=== PATIENT | female | born 1975 | race African-American/Black ===

== ENCOUNTER 2018-12-15 17:19 | Observation (INO) ==
[2018-12-15] MEDS ORDERED: MORPHINE 4 MG/1 ML VIAL IV STA (19:49)
[2018-12-15] MEDS ORDERED: ONDANSETRON 4 MG/2 ML VIAL IV STA (19:49)
[2018-12-15] MEDS ORDERED: NITROGLYCERIN 2% OINT 1 INCH/GM PACK TOP STA (19:49)
[2018-12-15] MEDS ORDERED: METHOCARBAMOL 1,000 MG/10 ML VIAL IV STA (19:49)
[2018-12-15] MEDS ORDERED: ASPIRIN 325 MG TABLET PO STA (19:49)
[2018-12-15 19:54] LABS: Basophils % 0.4 % (0.0-0.8); Eosinophils # 0.2 10*3/uL (0.0-0.87); Eosinophils % 2.3 % (0.00-10.9); Hematocrit 43.3 VOL% (35.7-47.0); Hemoglobin 14.9 GM/DL (12.0-16.0); Immature Granulocytes % 0.6 %; Immature Granulocytes Absolute 0.06 #; Lymphocytes # 4.1 10*3/uL (1.4-4.0); Lymphocytes % 42.7 % (21.3-54.2); Mean Corpuscular HGB Conc 34.4 GM/DL (32-36); Mean Corpuscular Volume 90.6 FL (87-102); Mean Platelet Volume 9.8 FL (9.6-12.0); Monocytes % 5.2 % (1.7-12.7); Neutrophils % 48.8 % (38.7-73.9); Platelet Count 281 T/CUMM (130-400); Red Blood Count 4.78 MC/CUMM (3.8-5.5); Red Cell Distribution Width 11.9 % (9.3-17.3); White Blood Count 9.6 T/CUMM (4-12)
[2018-12-15 20:05] LABS: Apearance,Urine Slightly Hazy (Clear); Bacteria,Urine Moderate /HPF (Few); Bilirubin,Urine Negative (Negative); Blood, Urine Negative (Negative); Glucose,Urine (UA) Negative (Negative); Ketones,Urine Negative (Negative); Nitrite,Urine Negative (Negative); Protein,Urine Negative; RBC,Urine 3 /HPF (0-4); Squamous Epithelial Cell,Urine Occasional /HPF (0-10); Urine Color Yellow (Yellow); Urine Specific Gravity 1.024 (1.001-1.035); Urine Urobilinogen < 2.0 EU/DL (0.2-1.0); WBC,Urine 1 /HPF (0-6)
[2018-12-15 20:06] LABS: INR 0.9; PT Patient Result 9.8 SECS (9.6-12.2)
[2018-12-15 20:08] LABS: Barbiturates Screen,Urine Negative (Negative); Benzodiazepines Screen,Urine Negative (Negative); Cannabinoid Screen,Urine Negative (Negative); Opiate Screen,Urine Negative (Negative); Phencyclidine Screen,Urine Negative (Negative)
[2018-12-15 20:23] LABS: Alanine Aminotransferase 35 U/L (13-56); Albumin 3.6 G/DL (3.4-5.0); Alkaline Phosphatase 90 U/L (45-117); Aspartate Amino Transferase 19 U/L (0-37); Bilirubin,Total < 0.39 MG/DL (0.2-1.0); Blood Urea Nitrogen 12 MG/DL (7-18); Calcium 9.4 MG/DL (8.5-10.1); Glucose 105 MG/DL (74-106); Osmolality,Calculated 280.3 MOS/KG (273-304); Total Protein 7.6 G/DL (6.4-8.3)
[2018-12-15] MEDS ORDERED: hydrALAZINE 20 MG/1 ML VIAL IM STA (21:22)
[2018-12-15] MEDS ORDERED: HYDROmorphone 2 MG/1 ML VIAL IM STA (21:23)
[2018-12-15] MEDS ORDERED: hydrALAZINE 20 MG/1 ML VIAL IV STA (21:35)
[2018-12-15] MEDS ORDERED: HYDROmorphone 2 MG/1 ML VIAL IV STA (21:41)
[2018-12-15] MEDS ORDERED: MORPHINE 4 MG/1 ML VIAL IV PRN (22:08)
[2018-12-15] MEDS ORDERED: ONDANSETRON 4 MG/2 ML VIAL IV PRN (22:08)
[2018-12-15] MEDS ORDERED: diphenhydrAMINE CAP 25 MG CAPSULE PO PRN (22:08)
[2018-12-15] MEDS ORDERED: NICOTINE 21 MG/24 HR PATCH TRANSDERM PRN (22:08)
[2018-12-15] MEDS ORDERED: LABETALOL 20 MG/4 ML SYRINGE IV STA (22:38)
[2018-12-15] MEDS ORDERED: LABETALOL 20 MG/4 ML SYRINGE IV ONE (22:38)
[2018-12-16 00:33] LABS: Thyroid Stimulating Hormone 5.67 uIU/ml (0.358-3.74)
[2018-12-16] MEDS: ACETAMINOPHEN 325 MG TABLET PO PRN ×2 (02:48→06:47)
[2018-12-16] MEDS ORDERED: KETOROLAC 30 MG/1 ML VIAL IV ONE (08:58)
[2018-12-16] MEDS ORDERED: LOSARTAN 50 MG TABLET PO SCH (09:00)
[2018-12-16] MEDS ORDERED: BACLOFEN 10 MG TABLET PO SCH (09:00)
[2018-12-16] MEDS ORDERED: LOSARTAN HYDROCHLOROTHIAZIDE PO SCH (09:00)
[2018-12-16] MEDS ORDERED: hydroCHLOROthiazide 12.5 MG CAPSULE PO SCH (09:00)
[2018-12-16] MEDS ORDERED: PANTOPRAZOLE 40 MG TABLET PO SCH (09:00)
[2018-12-16 11:08] VITALS: BP 155/95
[2018-12-16] MEDS ORDERED: METOPROLOL TARTRATE 25 MG TABLET PO SCH (21:00)
[2018-12-17] MEDS ORDERED: ASPIRIN EC 81 MG TABLET PO SCH (09:00)
== END 2018-12-16 13:34 | disposition home or self-care (01) ==
LOC: N.EDINP 17:19 → N.ED 17:19 → N.5E 22:54
PROVIDERS: ADMIT Internal Medicine Geriatric Medicine; ATTEND Internal Medicine Geriatric Medicine

== ENCOUNTER 2022-03-23 15:22 | Inpatient (IN) ==
[2022-03-23] MEDS ORDERED: ONDANSETRON ODT 4 MG TABLET PO STA (23:04)
[2022-03-23 23:27] LABS: Albumin 3.4 G/DL (3.4-5.0); Bilirubin,Total 0.5 MG/DL (0.20-1.00); Calcium 9.5 MG/DL (8.5-10.1); Osmolality,Calculated 271.4 MOS/KG (273-304); Potassium 3.2 MMOL/L (3.5-5.1); Total Protein 8.2 G/DL (6.4-8.2)
[2022-03-23 23:40] LABS: Basophils % 0.2 % (0.0-0.8); Eosinophils % 0.1 % (0.00-10.9); Hemoglobin 14.8 GM/DL (12.0-16.0); Immature Granulocytes % 0.4 %; Immature Granulocytes Absolute 0.03 #; Lymphocytes # 1.6 10*3/uL (1.4-4.0); Lymphocytes % 19.9 % (21.3-54.2); Mean Corpuscular HGB Conc 35.2 GM/DL (32-36); Mean Platelet Volume 10.1 FL (9.6-12.0); Monocytes # 0.5 10*3/uL (0.11-0.8); Monocytes % 6.5 % (1.7-12.7); Neutrophils % 72.9 % (38.7-73.9); Platelet Count 247 T/CUMM (130-400); Red Blood Count 4.83 MC/CUMM (3.8-5.5); Red Cell Distribution Width 11.9 % (9.3-17.3)
[2022-03-24 00:35] LABS: Bacteria,Urine Occasional /HPF (Few); Hyaline Casts,Urine 6 /LPF (0-3); Mucus,Urine Many /LPF (Occasional); RBC,Urine 10 /HPF (0-4); Squamous Epithelial Cell,Urine Few /HPF (0-10)
[2022-03-24 00:37] LABS: Bilirubin,Urine Negative (Negative); Blood, Urine Small mg/dL (Negative); Glucose,Urine (UA) Negative (Negative); Ketones,Urine Negative (Negative); Nitrite,Urine Negative (Negative); Protein,Urine 30 mg/dL (Negative); Urine Appearance Slightly Hazy (Clear); Urine Color Yellow (Yellow); Urine Specific Gravity >= 1.030 (1.001-1.035); Urine Urobilinogen 0.2 eU/dL (<2.0); Urine pH 5.5 (4.5-8.0)
[2022-03-24] MEDS: DEXTROSE 5% NACL 0.9% 1,000 ML IV SCH ×3 (01:06→18:40)
[2022-03-24] MEDS: HYDROmorphone 1 MG/1 ML SYRINGE IV PRN ×2 (01:12→12:15)
[2022-03-24] MEDS: PIPERACILLIN/TAZOBACTAM 3,375 MG in SODIUM CHLORIDE 0.9% 100 ML IV SCH ×3 (09:20→23:52)
[2022-03-24] MEDS: PANTOPRAZOLE 40 MG TABLET PO SCH (09:35)
[2022-03-24] MEDS: ONDANSETRON 4 MG/2 ML VIAL IV PRN (21:06)
[2022-03-25] MEDS: HYDROmorphone 1 MG/1 ML SYRINGE IV PRN ×5 (01:17→20:28)
[2022-03-25] MEDS: ONDANSETRON 4 MG/2 ML VIAL IV PRN (05:37)
[2022-03-25] MEDS: DEXTROSE 5% NACL 0.9% 1,000 ML IV SCH (05:38)
[2022-03-25] MEDS: PIPERACILLIN/TAZOBACTAM 3,375 MG in SODIUM CHLORIDE 0.9% 100 ML IV SCH ×3 (08:43→23:57)
[2022-03-25 10:28] LABS: Basophils % 0.4 % (0.0-0.8); Eosinophils # 0.1 10*3/uL (0.0-0.87); Hemoglobin 13.8 GM/DL (12.0-16.0); Immature Granulocytes % 0.6 %; Immature Granulocytes Absolute 0.03 #; Lymphocytes # 1.3 10*3/uL (1.4-4.0); Lymphocytes % 27.4 % (21.3-54.2); Mean Corpuscular HGB Conc 34.5 GM/DL (32-36); Mean Corpuscular Volume 89.9 FL (87-102); Mean Platelet Volume 9.9 FL (9.6-12.0); Monocytes # 0.5 10*3/uL (0.11-0.8); Monocytes % 9.3 % (1.7-12.7); Neutrophils % 61.3 % (38.7-73.9); Platelet Count 245 T/CUMM (130-400); Red Blood Count 4.45 MC/CUMM (3.8-5.5); Red Cell Distribution Width 11.9 % (9.3-17.3); White Blood Count 4.9 T/CUMM (4-12)
[2022-03-25 10:42] LABS: Calcium 9.2 MG/DL (8.5-10.1); Potassium 3.8 MMOL/L (3.5-5.1)
[2022-03-25] MEDS ORDERED: DEXTROSE 10% 250 ML BAG IV PRN (12:53)
[2022-03-25] MEDS ORDERED: GLUCAGON 1 MG VIAL IM PRN (12:53)
[2022-03-25] MEDS: LACTATED RINGERS 1,000 ML IV SCH (13:30)
[2022-03-25] MEDS: PANTOPRAZOLE 40 MG TABLET PO SCH (13:30)
[2022-03-25] MEDS: INSULIN LISPRO 100 UNIT/ML SUBCUT SCH ×2 (16:30→21:46)
[2022-03-25] MEDS: amLODIPine 5 MG TABLET PO SCH (20:28)
[2022-03-26] MEDS: LACTATED RINGERS 1,000 ML IV SCH ×4 (03:18→20:54)
[2022-03-26] MEDS: HYDROmorphone 1 MG/1 ML SYRINGE IV PRN ×4 (07:25→20:50)
[2022-03-26 08:28] LABS: Basophils % 0.2 % (0.0-0.8); Eosinophils # 0.1 10*3/uL (0.0-0.87); Eosinophils % 1.3 % (0.00-10.9); Hematocrit 35.8 VOL% (35.7-47.0); Hemoglobin 12.3 GM/DL (12.0-16.0); Immature Granulocytes % 1.5 %; Immature Granulocytes Absolute 0.08 #; Lymphocytes # 1.5 10*3/uL (1.4-4.0); Lymphocytes % 27.6 % (21.3-54.2); Mean Corpuscular HGB Conc 34.4 GM/DL (32-36); Mean Corpuscular Volume 90.6 FL (87-102); Mean Platelet Volume 9.9 FL (9.6-12.0); Monocytes # 0.4 10*3/uL (0.11-0.8); Monocytes % 6.9 % (1.7-12.7); Neutrophils % 62.5 % (38.7-73.9); Platelet Count 249 T/CUMM (130-400); Red Blood Count 3.95 MC/CUMM (3.8-5.5); Red Cell Distribution Width 11.6 % (9.3-17.3); White Blood Count 5.5 T/CUMM (4-12)
[2022-03-26 08:41] LABS: Calcium 8.7 MG/DL (8.5-10.1); Osmolality,Calculated 277.5 MOS/KG (273-304)
[2022-03-26] MEDS: PANTOPRAZOLE 40 MG TABLET PO SCH (08:48)
[2022-03-26] MEDS: INSULIN LISPRO 100 UNIT/ML SUBCUT SCH ×4 (08:48→20:46)
[2022-03-26] MEDS: PIPERACILLIN/TAZOBACTAM 3,375 MG in SODIUM CHLORIDE 0.9% 100 ML IV SCH ×2 (08:48→16:10)
[2022-03-26] MEDS: hydroCHLOROthiazide 25 MG TABLET PO SCH (08:49)
[2022-03-26] MEDS: FENOFIBRATE 160 MG TABLET PO SCH (08:49)
[2022-03-26] MEDS: VALSARTAN 160 MG TABLET PO SCH (08:52)
[2022-03-26] MEDS ORDERED: VALSARTAN/HCTZ 160-12.5 MG TABLET PO SCH (09:00)
[2022-03-26] MEDS: POTASSIUM CHLORIDE 20 MEQ TABLET PO SCH ×2 (11:52→20:46)
[2022-03-26] MEDS: amLODIPine 5 MG TABLET PO SCH (20:46)
[2022-03-27] MEDS: PIPERACILLIN/TAZOBACTAM 3,375 MG in SODIUM CHLORIDE 0.9% 100 ML IV SCH ×3 (00:17→15:28)
[2022-03-27] MEDS: HYDROmorphone 1 MG/1 ML SYRINGE IV PRN ×3 (00:17→22:12)
[2022-03-27] MEDS: LACTATED RINGERS 1,000 ML IV SCH ×2 (04:39→15:29)
[2022-03-27] MEDS: INSULIN LISPRO 100 UNIT/ML SUBCUT SCH ×4 (08:19→20:48)
[2022-03-27] MEDS: hydroCHLOROthiazide 25 MG TABLET PO SCH (08:58)
[2022-03-27] MEDS: VALSARTAN 160 MG TABLET PO SCH (08:58)
[2022-03-27] MEDS: PANTOPRAZOLE 40 MG TABLET PO SCH (08:59)
[2022-03-27] MEDS: FENOFIBRATE 160 MG TABLET PO SCH (08:59)
[2022-03-27] MEDS: POTASSIUM CHLORIDE 20 MEQ TABLET PO SCH ×2 (08:59→20:46)
[2022-03-27] MEDS: amLODIPine 5 MG TABLET PO SCH (20:46)
[2022-03-28] MEDS: PIPERACILLIN/TAZOBACTAM 3,375 MG in SODIUM CHLORIDE 0.9% 100 ML IV SCH ×3 (00:10→21:30)
[2022-03-28] MEDS: HYDROmorphone 1 MG/1 ML SYRINGE IV PRN (05:23)
[2022-03-28 05:39] LABS: Basophils # 0.1 10*3/uL (0.0-0.2); Basophils % 0.8 % (0.0-0.8); Eosinophils # 0.1 10*3/uL (0.0-0.87); Hematocrit 33.5 VOL% (35.7-47.0); Hemoglobin 11.9 GM/DL (12.0-16.0); Immature Granulocytes % 8.1 %; Immature Granulocytes Absolute 0.57 #; Lymphocytes # 2.5 10*3/uL (1.4-4.0); Lymphocytes % 34.9 % (21.3-54.2); Mean Corpuscular HGB Conc 35.5 GM/DL (32-36); Mean Corpuscular Volume 88.2 FL (87-102); Mean Platelet Volume 9.7 FL (9.6-12.0); Monocytes # 0.5 10*3/uL (0.11-0.8); Monocytes % 7.1 % (1.7-12.7); NRBC # 0.03 10*3/uL; Neutrophils % 47.1 % (38.7-73.9); Platelet Count 247 T/CUMM (130-400); Red Cell Distribution Width 11.7 % (9.3-17.3); White Blood Count 7.1 T/CUMM (4-12)
[2022-03-28 05:55] LABS: Calcium 9.1 MG/DL (8.5-10.1); Osmolality,Calculated 279.4 MOS/KG (273-304); Potassium 3.6 MMOL/L (3.5-5.1)
[2022-03-28 06:01] LABS: Band Neutrophils 3 % (0-10); Eosinophils 4 % (0-10); Lymphocytes 25 % (20-55); Microcytosis Slight; Platelet Estimate Normal; Total Cells Counted 100
[2022-03-28] MEDS: INSULIN LISPRO 100 UNIT/ML SUBCUT SCH ×4 (10:52→21:31)
[2022-03-28] MEDS: POTASSIUM CHLORIDE 20 MEQ TABLET PO SCH ×2 (13:02→21:29)
[2022-03-28] MEDS: VALSARTAN 160 MG TABLET PO SCH (13:02)
[2022-03-28] MEDS: hydroCHLOROthiazide 25 MG TABLET PO SCH (13:02)
[2022-03-28] MEDS: PANTOPRAZOLE 40 MG TABLET PO SCH (13:03)
[2022-03-28] MEDS: LACTATED RINGERS 1,000 ML IV SCH ×2 (14:51→14:52)
[2022-03-28] MEDS: FENOFIBRATE 160 MG TABLET PO SCH (16:56)
[2022-03-28] MEDS: amLODIPine 5 MG TABLET PO SCH (21:30)
[2022-03-29] MEDS: ONDANSETRON 4 MG/2 ML VIAL IV PRN (05:15)
[2022-03-29] MEDS: PIPERACILLIN/TAZOBACTAM 3,375 MG in SODIUM CHLORIDE 0.9% 100 ML IV SCH (05:21)
[2022-03-29] MEDS: INSULIN LISPRO 100 UNIT/ML SUBCUT SCH ×2 (07:47→12:06)
[2022-03-29] MEDS: PANTOPRAZOLE 40 MG TABLET PO SCH (09:23)
[2022-03-29] MEDS: VALSARTAN 160 MG TABLET PO SCH (09:23)
[2022-03-29] MEDS: FENOFIBRATE 160 MG TABLET PO SCH (09:24)
[2022-03-29] MEDS: POTASSIUM CHLORIDE 20 MEQ TABLET PO SCH (09:24)
[2022-03-29] MEDS: hydroCHLOROthiazide 25 MG TABLET PO SCH (09:24)
[2022-03-29 13:09] VITALS: BP 145/100
[2022-03-29] MEDS: LACTATED RINGERS 1,000 ML IV SCH (13:11)
== END 2022-03-29 12:35 | disposition home or self-care (01) | DRG 392 ==
LOC: N.EDINP 15:22 → N.ED 15:22 → N.EDINP 03-24 01:33 → N.3E 03-24 01:58
PROVIDERS: ADMIT Student in an Organized Health Care Education/Training Program; ATTEND Student in an Organized Health Care Education/Training Program

== ENCOUNTER 2022-03-30 14:54 | Inpatient (IN) ==
[2022-03-30] MEDS ORDERED: SODIUM CHLORIDE 0.9% 1,000 ML IV STA ×2 (15:34→20:49)
[2022-03-30 15:45] LABS: Basophils % 0.2 % (0.0-0.8); Eosinophils # 0.1 10*3/uL (0.0-0.87); Eosinophils % 0.5 % (0.00-10.9); Hematocrit 39.3 VOL% (35.7-47.0); Hemoglobin 13.5 GM/DL (12.0-16.0); Immature Granulocytes % 1.6 %; Immature Granulocytes Absolute 0.23 #; Lymphocytes % 6.6 % (21.3-54.2); Mean Corpuscular HGB Conc 34.4 GM/DL (32-36); Mean Corpuscular Volume 90.1 FL (87-102); Mean Platelet Volume 9.7 FL (9.6-12.0); Monocytes # 0.4 10*3/uL (0.11-0.8); Monocytes % 2.9 % (1.7-12.7); Neutrophils % 88.2 % (38.7-73.9); Platelet Count 413 T/CUMM (130-400); Red Blood Count 4.36 MC/CUMM (3.8-5.5); Red Cell Distribution Width 11.9 % (9.3-17.3); White Blood Count 14.5 T/CUMM (4-12)
[2022-03-30 16:06] LABS: Alanine Aminotransferase 300 U/L (13-56); Albumin 3.5 G/DL (3.4-5.0); Alkaline Phosphatase 197 U/L (45-117); Aspartate Amino Transferase 171 U/L (0-37); Blood Urea Nitrogen 13 MG/DL (7-18); Calcium 9.9 MG/DL (8.5-10.1); Carbon Dioxide 26 MMOL/L (21-32); Chloride 103 MMOL/L (98-107); Glucose 199 MG/DL (74-106); Potassium 3.9 MMOL/L (3.5-5.1); Sodium 136 MMOL/L (136-145); Total Protein 7.7 G/DL (6.4-8.2)
[2022-03-30 16:53] LABS: Mucus,Urine Occasional /LPF (Occasional); RBC,Urine 1 /HPF (0-4); Squamous Epithelial Cell,Urine Occasional /HPF (0-10)
[2022-03-30 17:12] LABS: Bilirubin,Urine Negative (Negative); Blood, Urine Trace mg/dL (Negative); Glucose,Urine (UA) Negative (Negative); Ketones,Urine Negative (Negative); Nitrite,Urine Negative (Negative); Protein,Urine Negative (Negative); Urine Appearance Clear (Clear); Urine Color Yellow (Yellow); Urine Specific Gravity 1.025 (1.001-1.035); Urine Urobilinogen 0.2 eU/dL (<2.0)
[2022-03-30] MEDS ORDERED: PROMETHAZINE INJ 12.5 MG in SODIUM CHLORIDE 0.9% 50 ML IV STA (20:57)
[2022-03-30] MEDS ORDERED: PIPERACILLIN/TAZOBACTAM 3,375 MG in SODIUM CHLORIDE 0.9% 100 ML IV STA (21:08)
[2022-03-30] MEDS ORDERED: hydrALAZINE 20 MG/1 ML VIAL IV PRN (22:02)
[2022-03-30] MEDS ORDERED: GLUCAGON 1 MG VIAL IM PRN (22:02)
[2022-03-30] MEDS ORDERED: ONDANSETRON 4 MG/2 ML VIAL IV PRN (22:02)
[2022-03-30] MEDS ORDERED: DEXTROSE 10% 250 ML BAG IV PRN (22:02)
[2022-03-30] MEDS ORDERED: PROMETHAZINE 25 MG/1 ML VIAL IM PRN (22:02)
[2022-03-30] MEDS: MORPHINE 2 MG/1 ML SYRINGE IV PRN (23:23)
[2022-03-30] MEDS: metroNIDAZOLE INJ 500 MG/100 ML PREMIX IV SCH (23:26)
[2022-03-31] MEDS: SODIUM CHLORIDE 0.9% 1,000 ML IV SCH ×2 (03:58→14:16)
[2022-03-31] MEDS: MORPHINE 2 MG/1 ML SYRINGE IV PRN ×4 (06:19→20:01)
[2022-03-31 07:24] LABS: Basophils % 0.2 % (0.0-0.8); Eosinophils # 0.2 10*3/uL (0.0-0.87); Eosinophils % 1.5 % (0.00-10.9); Hemoglobin 12.1 GM/DL (12.0-16.0); Immature Granulocytes % 1.5 %; Immature Granulocytes Absolute 0.15 #; Lymphocytes # 1.5 10*3/uL (1.4-4.0); Mean Corpuscular HGB Conc 34.6 GM/DL (32-36); Mean Platelet Volume 9.9 FL (9.6-12.0); Monocytes # 0.4 10*3/uL (0.11-0.8); Monocytes % 4.2 % (1.7-12.7); Neutrophils % 77.6 % (38.7-73.9); Platelet Count 361 T/CUMM (130-400); Red Blood Count 3.89 MC/CUMM (3.8-5.5); Red Cell Distribution Width 12.2 % (9.3-17.3); White Blood Count 10.1 T/CUMM (4-12)
[2022-03-31 07:54] LABS: Albumin 2.9 G/DL (3.4-5.0); Bilirubin,Total 0.7 MG/DL (0.20-1.00); Calcium 9.6 MG/DL (8.5-10.1); Osmolality,Calculated 279.4 MOS/KG (273-304); Potassium 3.4 MMOL/L (3.5-5.1); Total Protein 7.4 G/DL (6.4-8.2)
[2022-03-31] MEDS ORDERED: POTASSIUM CHLORIDE 20 MEQ TABLET PO ONE (10:33)
[2022-03-31] MEDS: INSULIN LISPRO 100 UNIT/ML SUBCUT SCH ×4 (10:47→21:38)
[2022-03-31] MEDS: metroNIDAZOLE INJ 500 MG/100 ML PREMIX IV SCH (10:47)
[2022-03-31] MEDS: ENOXAPARIN 40 MG/0.4 ML SYRINGE SUBCUT SCH (10:48)
[2022-03-31] MEDS: MULTIVITAMIN (CENTRUM) TABLET PO SCH (10:48)
[2022-03-31] MEDS: VALSARTAN 160 MG TABLET PO SCH (10:48)
[2022-03-31] MEDS: PANTOPRAZOLE 40 MG TABLET PO SCH (10:48)
[2022-03-31] MEDS: hydroCHLOROthiazide 25 MG TABLET PO SCH (10:48)
[2022-03-31] MEDS: CHOLECALCIFEROL 1,000 UNIT TABLET PO SCH (10:49)
[2022-03-31] MEDS: FENOFIBRATE 160 MG TABLET PO SCH (10:49)
[2022-03-31] MEDS: PIPERACILLIN/TAZOBACTAM 3,375 MG in SODIUM CHLORIDE 0.9% 100 ML IV SCH ×2 (14:16→20:01)
[2022-03-31] MEDS: amLODIPine 5 MG TABLET PO SCH (20:01)
[2022-04-01] MEDS: MORPHINE 2 MG/1 ML SYRINGE IV PRN ×3 (04:54→21:43)
[2022-04-01] MEDS: PIPERACILLIN/TAZOBACTAM 3,375 MG in SODIUM CHLORIDE 0.9% 100 ML IV SCH ×3 (04:54→21:26)
[2022-04-01 06:18] LABS: Basophils % 0.3 % (0.0-0.8); Eosinophils # 0.2 10*3/uL (0.0-0.87); Eosinophils % 2.5 % (0.00-10.9); Hemoglobin 11.5 GM/DL (12.0-16.0); Immature Granulocytes % 1.3 %; Immature Granulocytes Absolute 0.09 #; Lymphocytes # 1.5 10*3/uL (1.4-4.0); Lymphocytes % 21.2 % (21.3-54.2); Mean Corpuscular HGB Conc 32.9 GM/DL (32-36); Mean Corpuscular Volume 90.9 FL (87-102); Monocytes # 0.4 10*3/uL (0.11-0.8); Monocytes % 5.4 % (1.7-12.7); Neutrophils % 69.3 % (38.7-73.9); Platelet Count 342 T/CUMM (130-400); Red Blood Count 3.85 MC/CUMM (3.8-5.5); Red Cell Distribution Width 11.9 % (9.3-17.3); White Blood Count 6.8 T/CUMM (4-12)
[2022-04-01 06:40] LABS: Albumin 2.8 G/DL (3.4-5.0); Bilirubin,Total 0.5 MG/DL (0.20-1.00); Calcium 9.5 MG/DL (8.5-10.1); Osmolality,Calculated 276.7 MOS/KG (273-304); Potassium 3.7 MMOL/L (3.5-5.1); Total Protein 6.9 G/DL (6.4-8.2)
[2022-04-01] MEDS: SODIUM CHLORIDE 0.9% 1,000 ML IV SCH (07:30)
[2022-04-01] MEDS: INSULIN LISPRO 100 UNIT/ML SUBCUT SCH ×4 (08:27→21:27)
[2022-04-01] MEDS: CHOLECALCIFEROL 1,000 UNIT TABLET PO SCH (08:29)
[2022-04-01] MEDS: MULTIVITAMIN (CENTRUM) TABLET PO SCH (08:29)
[2022-04-01] MEDS: FENOFIBRATE 160 MG TABLET PO SCH (08:29)
[2022-04-01] MEDS: PANTOPRAZOLE 40 MG TABLET PO SCH (08:29)
[2022-04-01] MEDS: VALSARTAN 160 MG TABLET PO SCH (08:29)
[2022-04-01] MEDS: hydroCHLOROthiazide 25 MG TABLET PO SCH (08:29)
[2022-04-01] MEDS: ENOXAPARIN 40 MG/0.4 ML SYRINGE SUBCUT SCH (08:29)
[2022-04-01] MEDS: amLODIPine 5 MG TABLET PO SCH (21:26)
[2022-04-02] MEDS ORDERED: ZALEPLON 5 MG CAPSULE PO PRN (01:26)
[2022-04-02] MEDS: PIPERACILLIN/TAZOBACTAM 3,375 MG in SODIUM CHLORIDE 0.9% 100 ML IV SCH (04:47)
[2022-04-02] MEDS: ENOXAPARIN 40 MG/0.4 ML SYRINGE SUBCUT SCH (08:04)
[2022-04-02] MEDS: CHOLECALCIFEROL 1,000 UNIT TABLET PO SCH (08:04)
[2022-04-02] MEDS: hydroCHLOROthiazide 25 MG TABLET PO SCH (08:04)
[2022-04-02] MEDS: PANTOPRAZOLE 40 MG TABLET PO SCH (08:04)
[2022-04-02] MEDS: FENOFIBRATE 160 MG TABLET PO SCH (08:04)
[2022-04-02] MEDS: VALSARTAN 160 MG TABLET PO SCH (08:04)
[2022-04-02] MEDS: MULTIVITAMIN (CENTRUM) TABLET PO SCH (08:04)
[2022-04-02] MEDS: INSULIN LISPRO 100 UNIT/ML SUBCUT SCH (08:08)
[2022-04-02 08:27] VITALS: BP 106/54
[2022-04-02 09:24] LABS: Albumin 3.2 G/DL (3.4-5.0); Bilirubin,Direct 0.12 MG/DL (0.0-0.20); Bilirubin,Indirect 0.3 MG/DL (0.0-1.0); Bilirubin,Total 0.4 MG/DL (0.20-1.00)
== END 2022-04-02 13:24 | disposition home or self-care (01) | DRG 391 ==
LOC: N.ED 14:54 → N.EDINP 21:57 → SUATTDRO 21:57 → N.EDINP 23:07 → N.5E 23:10 → N.2E 04-02 10:12
PROVIDERS: ADMIT Internal Medicine; ATTEND Internal Medicine Geriatric Medicine